=== PATIENT | female | born 1990 | race Two or more races ===

== ENCOUNTER 2025-04-20 11:03 | Emergency (ER) | payer MEDICAID, SELFPAY ==
[2025-04-20 11:23] VITALS: BP 154/85; PULSE 87; RESP 18; TEMP 36.9; O2SAT 99
--- NOTE | 2025-04-20 11:26 | XR_ITS ---
Examination: Wrist, right 3 views Technique: Wrist AP, oblique, lateral 3 views Date and time of exam: April 12, 2025: 29 hours INDICATIONS: Right wrist pain and swelling beginning 2 weeks ago FINDINGS: No fracture or dislocation No foreign body IMPRESSION: No fracture or dislocation
--- NOTE | 2025-04-20 11:27 | EDNOTE_ITS ---
Upper Extremity Injury RME/HPI General Chief Complaint: Hand/Wrist Problems Stated Complaint: RIGHT WRIST PAIN Time Seen by Provider: 04/20/25 11:22 Source: patient Arrival date/time: 04/20/25 11:03 34-year-old female with no known medical history presents to the emergency room with a chief complaint of tenderness and swelling to her right wrist x 1 week Mode of arrival: ambulatory Limitations: no limitations Related Data Previous Rx's ?Medication ?Instructions ?Recorded ibuprofen 600 mg tablet 600 mg PO TID PRN fever or p ain 04/27/18 #20 tabs ibuprofen 800 mg tablet 800 mg PO TID PRN pain #30 t abs 12/22/20 hydrocodone 5 mg-acetaminophen 325 1 tab PO BID PRN pa in #6 tabs 07/01/21 mg tablet ibuprofen 800 mg tablet 800 mg PO TID PRN pain #30 t abs 07/01/21 ibuprofen 800 mg tablet 800 mg PO Q8H #30 tabs 04/20 Allergies Allergy/AdvReac Type Severity Reaction Status Date / Time No Known Allergies Allergy Verified 04/20/25 11:05 Review of Systems Review of Systems Systems Reviewed: All systems reviewed, normal except as documented Constitutional Constitutional: Reports system reviewed and no additional complaints, except as documented, Denies fatigue, Denies fever(s), Denies headache(s) and Denies weakness Eyes Eyes: Reports system reviewed and no additional complaints, except as documented, Denies blurry vision and Denies change in vision ENT Ears, Nose, Mouth, and Throat: Reports system reviewed and no additional complaints, except as documented, Denies otalgia, Denies headache(s), Denies nasal congestion, Denies throat swelling and Denies vertigo Cardiovascular Cardiovascular: Reports system reviewed and no additional complaints, except as documented, Denies chest pain, Denies dyspnea and Denies dyspnea on exertion Respiratory Respiratory: Reports system reviewed and no additional complaints, except as documented, Denies chest congestion, Denies cough, Denies dyspnea, Denies dyspnea on exertion and Denies wheezing Gastrointestinal Gastrointestinal: Reports system reviewed and no additional complaints, except as documented, Denies abdominal pain, Denies cramping, Denies nausea and Denies vomiting Genitourinary Genitourinary: Reports system reviewed and no additional complaints, except as documented Musculoskeletal Musculoskeletal: Reports system reviewed and no additional complaints, except as documented, Reports arthralgias, Denies back pain and Reports joint swelling Integumentary/Breasts Skin/Breast: Reports system reviewed and no additional complaints, except as documented and Denies wounds Neurologic Neurologic: Reports system reviewed and no additional complaints, except as documented, Denies confusion, Denies headache(s), Denies lack of coordination, Denies vertigo and Denies weakness Psychiatric Psychiatric: Reports system reviewed and no additional complaints, except as documented, Denies anxiety, Denies confusion, Denies depression, Denies paranoia, Denies suicidal ideation and Denies tactile hallucinations Endocrine Endocrine: Reports system reviewed and no additional complaints, except as documented and Denies fatigue Hematologic/Lymphatic Hematologic/Lymphatic: Reports system reviewed and no additional complaints, except as documented and Denies lymphadenopathy Allergic/Immunologic Allergic/Immunologic: Reports system reviewed and no additional complaints, except as documented, Denies throat swelling, Denies urticaria and Denies wheezing Past Medical History Social History SMOKING STATUS: Never smoker ED Exam General Limitations: Present no limitations General appearance: Present alert and in no apparent distress Head Head exam: Present atraumatic Eye Eye exam: Present normal appearance, PERRL and EOMI ENT ENT exam: Present normal exam, normal oropharynx and mucous membranes moist Neck Neck exam: Present normal inspection, full ROM and trachea midline Chest Chest inspection: Present normal inspection and symmetric chest wall rise Respiratory Respiratory exam: Present normal lung sounds bilaterally Cardiovascular Cardiovascular exam: Present regular rate, normal rhythm and normal heart sounds Abdominal Exam Abdominal exam: Present soft and normal bowel sounds Extremities Exam Extremities exam: Present normal inspection and full ROM Expanded Upper Extremity Exam Shoulder exam: Present normal inspection Arm exam: Present normal inspection Elbow exam: Present normal inspection Forearm/Wrist exam: Present full ROM, tenderness and swelling Back Exam Back exam: Present normal inspection and full ROM Neurological Exam Neurological exam: Present alert, oriented X3 and CN II-XII intact Psychiatric Psychiatric exam: Present normal affect and normal mood Skin Skin exam: Present warm, dry, intact and normal color Course Quality Measures none Orders Category Date Time Status sling [Splint / Immobilizer] STAT Care 04/20/25 11:26 Active XR wrist comp RT min 3V Stat Exams 04/20/25 11:26 Completed Ketorolac Inj [Toradol Inj] Med 04/20/25 11:26 Discontinued 30 mg IM X1 ONE Vital Signs Vital signs: Vital Signs Temperature 98.4 F 04/20/25 11:23 Pulse Rate 87 04/20/25 11:23 Respiratory Rate 18 04/20/25 11:23 Blood Pressure 154/85 H 04/20/25 11:23 Pulse Oximetry (%) 99 04/20/25 11:23 Oxygen Delivery Method Room Air 04/20/25 11:23 Extremity Injury MDM Narrative MDM Narrative:: 34-year-old female with no known medical history presents to the emergency room with a chief complaint of tenderness and swelling to her right wrist x 1 week Patient is hemodynamically stable and in no apparent distress Physical examination shows tenderness and swelling to the patient's right wrist. 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 X-rays of the wrist were negative for any acute fracture or dislocation. Patient was educated to follow-up with primary care provider and if her signs and symptoms continue to get checked for carpal tunnel Patient was discharged and educated to follow-up with primary care provider in the next 24 to 48 hours and return to the emergency room for any evidence of worsening signs or symptoms Patient data External records reviewed:: [facility] previous records Clinical information provided by:: patient Social determinants that could affect healthcare access:: none Patient has the following chronic illnesses:: No chronic illness How is presenting disease/condition affected by chronic disease/condition?: no chronic disease Evaluation data The following diagnostics were reviewed and interpreted by me:: lab results and radiology exam(s) Lab and/or radiology exams considered but not ordered:: Labs and radiology exams considered and ordered Interpretation Summary: Wrist [id number]: No fracture or dislocation No foreign body IMPRESSION: No fracture or dislocation Medications / Prescriptions Medications or Prescriptions considered but not ordered:: Medication given Medication administrations:: Medication Administration History Discontinued Medications Ketorolac Tromethamine (Ketorolac Inj 60 Mg/2 Ml Vial) 30 mg IM X1 ONE Stop: 04/20/25 11:27 Last Admin: 04/20/25 11:43 Dose: 30 mg Documented By: Medication given Consultations Consultation(s) initiated? (list below): No Diagnosis Upper Extremity Injury Differential Diagnosis: sprain and strain of wrist, fracture of wrist and other (Tendinitis of wrist) Most likely diagnosis given after review of the tests above:: Tendinitis of wrist Admission Indicated Admission indicated?: not indicated Admission Request Was there a request for admission?: No Disposition Plan Disposition Plan: Discharge Discharge Attestation Discharge Attestation: The patient and all family members were given an opportunity to ask questions and understood the discharge instructions. Discharge instructions specifically effects, indications for sooner follow up or return to the emergency department, and the expected course of current diagnosis. Patient condition: Stable Discharge Plan Plan Patient Disposition: HOME (Self Care) Discharge Disposition comment: Stable Prescriptions/Referrals Prescriptions/Med Rec: New ibuprofen 800 mg tablet 800 mg PO Q8H Qty: 30 0RF No Action ibuprofen 600 mg tablet 600 mg PO TID PRN (Reason: fever or pain) Qty: 20 0RF Rx Instructions: take with food ibuprofen 800 mg tablet 800 mg PO TID PRN (Reason: pain) Qty: 30 0RF ibuprofen 800 mg tablet 800 mg PO TID PRN (Reason: pain) Qty: 30 0RF hydrocodone-acetaminophen 5-325 mg tablet 1 tab PO BID MDD 10 PRN (Reason: pain) Qty: 6 0RF Referrals: No Primary/Family,Physician [Primary Care Provider] - In 1 week Problem List Clinical Impression: Tendinitis of wrist Patient/Caregiver Discharge Instructions Additional Instructions: Please follow-up with your primary care provider in the next 24 to 48 hours X-rays of your wrist were negative for any acute fracture or dislocation Please keep your splint in place If your signs and symptoms continue a referral for an MRI may be indicated to assess for any carpal tunnel For any evidence of worsening signs or symptoms return to the emergency room immediately Print Language: Malawian Stand Alone Forms: Tawanna Award Info., Work/School Release, Patient Portal Info Letter SANDRA/SID Supervising Physician NATA Supervising Physician: Dr. Burr
[2025-04-20] MEDS: KETOROLAC INJ 60 MG/2 ML VIAL 30 MG IM (11:43)
== END 2025-04-20 13:35 | disposition home or self-care (01) ==
PROVIDERS: Emergency Provider Emergency Medicine
DX: M77.8 Other enthesopathies, not elsewhere classified (principal)
CPT/HCPCS: 73110; 96372; 99283; J1885

== ENCOUNTER 2025-04-28 00:29 | Emergency (ER) | payer MEDICAID, SELFPAY ==
[2025-04-28 00:32] VITALS: BP 142/102; PULSE 87; RESP 18; TEMP 36.7; O2SAT 99
[2025-04-28 00:33] VITALS: PULSE 114; RESP 16; O2SAT 100
[2025-04-28 00:37] VITALS: BP 145/95; PULSE 82; RESP 17; TEMP 37; O2SAT 98
--- NOTE | 2025-04-28 00:48 | EKG_ITS ---
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
[2025-04-28 01:05] LABS: Basophils # (Auto) 0.1 Thou/mm3 (0.0-0.2); Basophils % (Auto) 1 % (0-2.5); Eosinophils # (Auto) 0.2 Thou/mm3 (0.0-0.5); Eosinophils % (Auto) 2 % (0-10); Hematocrit 40.3 % (36.0-46.0); Hemoglobin 13.6 g/dL (12.0-16.0); Immature Granulocytes Auto 0.02 Thou/mm3 (0.00-0.00); Lymphocytes # (Auto) 4.8 Thou/mm3 (1.0-4.8); Lymphocytes % (Auto) 46 % (10-50); Mean Corpuscular HGB Conc 33.7 g/dl (31.0-37.0); Mean Corpuscular Hemoglobin 31.9 pg (25.0-35.0); Mean Corpuscular Volume 95 fL (80-100); Monocytes # (Auto) 1.0 Thou/mm3 (0.0-0.8); Monocytes % (Auto) 9 % (0-12); Neutrophils # (Auto) 4.4 Thou/mm3 (1.8-7.7); Neutrophils % (Auto) 42 % (37-80); Nucleated Red Blood Cell # 0.00 Thou/mm3 (0.00-0.00); Nucleated Red Blood Cell % 0 /100 WBC (0); Platelet Count 283 Thou/mm3 (140-440); RDW Standard Deviation 40.0 fL (36.4-46.3); Red Blood Count 4.26 Miln/mm3 (4.00-5.20); White Blood Count 10.5 Thou/mm3 (3.6-11.0)
[2025-04-28 01:23] LABS: Alanine Aminotransferase 11 U/L (10-49); Albumin, Serum 4.5 gm/dL (3.5-5.0); Albumin/Globulin Ratio 1.5 (1.2-2.2); Alkaline Phosphatase 58 U/L (46-116); Anion Gap 11 (7-16); Aspartate Amino Transferase 24 U/L (0-34); BUN/Creatinine Ratio 16 Ratio (12-20); Bilirubin,Total 0.2 mg/dL (0.3-1.2); Blood Urea Nitrogen 13 mg/dL (9-23); Calcium 9.6 mg/dL (8.3-10.6); Calcium (Corrected) 9.6 mg/dL (8.5-10.1); Carbon Dioxide 25.7 mMol/L (20.0-31.0); Chloride 105 mMol/L (98-107); Creatinine (Component) 0.8 mg/dL (0.6-1.3); Estimated Creatinine Clearance 84.4 mL/min (>60); Globulin 3.0 gm/dL (2.3-3.5); Glucose 96 mg/dL (74-106); Osmolality,Calculated 283 (275-295); Potassium 3.6 mMol/L (3.4-5.1); Sodium 142 mMol/L (136-145); Total Protein 7.5 gm/dL (5.7-8.2); eGFR > 60 See Note
--- NOTE | 2025-04-28 01:47 | PD.EDANX ---
ED Anxiety RME/HPI General Chief Complaint: Anxiety Stated Complaint: NUMBNESS Time Seen by Provider: 04/28/25 00:36 Arrival date/time: 04/28/25 00:29 Related Data Previous Rx's ?Medication ?Instructions ?Recorded ibuprofen 600 mg tablet 600 mg PO TID PRN fever or pain 04/27/18 #20 tabs ibuprofen 800 mg tablet 800 mg PO TID PRN pain #30 tabs 12/22/20 hydrocodone 5 mg-acetaminophen 325 1 tab PO BID PRN pain #6 tabs 07/01/21 mg tablet ibuprofen 800 mg tablet 800 mg PO TID PRN pain #30 tabs 07/01/21 ibuprofen 800 mg tablet 800 mg PO Q8H #30 tabs 04/20/25 atenolol 25 mg tablet 25 mg PO QDAY 1 month #30 tabs 04/28/25 Allergies Allergy/AdvReac Type Severity Reaction Status Date / Time No Known Allergies Allergy Verified 04/20/25 11:05 ED Exam Narrative Physical exam: Physical Exam: GENERAL: Awake, answering questions appropriately, appears stated age HEENT: NC/AT. Moist mucosa. PERRLA/EOMI. CARDIO: Heart RRR, no obvious murmurs, no JVD. PULM: No coughing or visible SOB. Lungs CTA B/L. GI: Abdomen soft, NT/ND, +BS. SKIN/MSK/EXT: No wounds/discoloration/rashes/edema/amputations noted. +Pedal pulses present B/L. NEURO: Oriented x3, cranial nerves II to XII grossly intact, muscle strength 5 out of 5 on both upper and lower extremities, sensations intact, moves extremities x4, no focal neurologic deficits noted. Course Quality Measures none Orders Category Date Time Status EKG (ED ONLY) *Do not use* NOW Care 04/28/25 00:48 Completed EKG (ED Only) Stat Exams 04/28/25 00:48 Draft CBC Stat Lab 04/28/25 00:55 Completed CMP [Comprehensive Metabolic Panel] Stat Lab 04/28/25 00:55 Completed Vital Signs Vital signs: Vital Signs Temperature 98.1 F 04/28/25 00:32 Pulse Rate 87 04/28/25 00:32 Respiratory Rate 18 04/28/25 00:32 Blood Pressure 142/102 H 04/28/25 00:32 Pulse Oximetry (%) 99 04/28/25 00:32 Oxygen Delivery Method Room Air 04/28/25 00:32 Anxiety MDM Narrative MDM Narrative: HPI: 35-year-old female with past medical history of hypertension, not currently on any home antihypertensives, remote history of Paul's palsy presenting to the ED on 04/28 with an episode of bilateral upper extremity pain and numbness along with shortness of breath, palpitations and the feeling that she was having a stroke . Patient states that her symptoms felt somewhat similar to her episode of Paul's palsy years ago; however, this time both of her arms felt numb. Patient denies having any chest pain during this episode but states that she felt very ill and was worried. She was apparently watching a movie with her children when this episode happened and she denies having any exacerbating events or stressful triggers. Per yaneth? at bedside, patient has had a similar episode about 2 weeks ago at which point she apparently felt very dizzy with upper extremity numbness that but never lost consciousness. She denies smoking cigarettes but does state that she has some family history of strokes on maternal side of the family. Patient's mother currently had a stroke later in life when she was much older. On examination please refer to the physical exam note above; patient presented mildly hypertensive 142/102, heart rate of 87, respiratory of 18, afebrile satting 99 on room air. Pertinent lab findings included CBC which was largely unremarkable with a WBC of 10.5, hemoglobin 13.6, CMP was also largely unremarkable without any concerning findings. EKG showed normal sinus rhythm Differentials at this time include anxiety disorder, panic attack, postural orthostatic tachycardia, orthostatic hypotension but less likely to be acute coronary syndrome, arrhythmia or seizure/stroke as the patient has very low risk factors and on assessment does not have any signs of seizure/stroke. #Acute anxiety #Panic disorder #Hypertension As noted, patient has very low risk factors for any other condition at this time Patient has episodes of panic attacks in the past and apparently is not being treated currently with hypertension Plan: Take atenolol 25 mg by mouth for blood pressure control Please follow-up with your PCP for hypertension management and possible need for anxiety treatment if recurrent episodes occur If you develop chest pain, shortness of breath, dizziness or loss of consciousness - please come back to the ED immediately Patient seen and examined with attending Dr. Yani Enrique, DO PGY-2 Internal Medicine - [facility] Patient data External records reviewed:: None Clinical information provided by:: patient Social determinants that could affect healthcare access:: none Patient has the following chronic illnesses:: Hypertension How is presenting disease/condition affected by chronic disease/condition?: uneffected by Evaluation data The following diagnostics were reviewed and interpreted by me:: lab results and EKG tracing(s) Lab and/or radiology exams considered but not ordered:: See above Interpretation Summary: See above Medications / Prescriptions Medications or Prescriptions considered but not ordered:: See above Medication administrations:: See above Consultations Consultation(s) initiated? (list below): No Diagnosis Most likely diagnosis given after review of the tests above:: Anxiety disorder, panic attack Admission Indicated Admission indicated?: not indicated Admission Request Was there a request for admission?: No Disposition Plan Disposition Plan: Discharge Discharge Attestation Discharge Attestation: The patient and all family members were given an opportunity to ask questions and understood the discharge instructions. Discharge instructions specifically effects, indications for sooner follow up or return to the emergency department, and the expected course of current diagnosis. Patient condition: Stable Discharge Plan Plan Patient Disposition: HOME (Self Care) Discharge Disposition comment: Please follow-up with your PCP for hypertension management and possible need for anxiety treatment if recurrent episodes occur If you develop chest pain, shortness of breath, dizziness or loss of consciousness - please come back to the ED immediately Patient condition on transfer: Stable Prescriptions/Referrals Prescriptions/Med Rec: New atenolol 25 mg tablet 25 mg PO QDAY 30 Days Qty: 30 0RF No Action ibuprofen 600 mg tablet 600 mg PO TID PRN (Reason: fever or pain) Qty: 20 0RF Rx Instructions: take with food ibuprofen 800 mg tablet 800 mg PO TID PRN (Reason: pain) Qty: 30 0RF ibuprofen 800 mg tablet 800 mg PO TID PRN (Reason: pain) Qty: 30 0RF hydrocodone-acetaminophen 5-325 mg tablet 1 tab PO BID MDD 10 PRN (Reason: pain) Qty: 6 0RF ibuprofen 800 mg tablet 800 mg PO Q8H Qty: 30 0RF Problem List Clinical Impression: Acute anxiety Patient/Caregiver Discharge Instructions Education Materials: Anxiety Disorders Tx Therapy Print Language: Slovenian Stand Alone Forms: Tawanna Award Info., Patient Portal Info Letter
[2025-04-28 02:42] VITALS: BP 131/98; PULSE 63; RESP 16; TEMP 37; O2SAT 98
== END 2025-04-28 02:44 | disposition home or self-care (01) ==
LOC: SERX 02:54
PROVIDERS: Emergency Provider Emergency Medicine
DX: F41.9 Anxiety disorder, unspecified (principal); I10 Essential (primary) hypertension
CPT/HCPCS: 36415; 80053; 85025; 93005; 99282

== ENCOUNTER 2025-05-03 13:02 | Emergency (ER) | payer MEDICAID, SELFPAY ==
[2025-05-03 13:04] VITALS: BMI 30.2
[2025-05-03 13:26] VITALS: BP 156/103; PULSE 67; RESP 18; TEMP 36.8; O2SAT 95
--- NOTE | 2025-05-03 13:28 | EKG_ITS ---
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
--- NOTE | 2025-05-03 13:28 | XR_ITS ---
EXAMINATION: PA lateral chest 2 views TECHNIQUE: PA lateral chest 2 views Exam date and time: May 03, 2025, 1347 hours INDICATIONS: Chest pain dizziness numbness in the extremities beginning 6 days ago. FINDINGS: Normal heart size Lungs are clear. Osseous rectors are intact IMPRESSION: No active disease
--- NOTE | 2025-05-03 13:29 | EDNOTE_ITS ---
ED Anxiety RME/HPI General Chief Complaint: Anxiety Stated Complaint: PANIC ATTACK, TINGLING AND NUMBNESS TO EXT, PAIN Time Seen by Provider: 05/03/25 13:21 Arrival date/time: 05/03/25 13:02 35-year-old female patient with significant history of hypertension was brought in for evaluation regarding multiple complaints. Patient was sitting [place] when she developed sudden onset of anterior chest tightness, associated with neck pain, bilateral upper extremity tingling sensation, and not feeling well. Patient denies any headache denies any dizziness. Denies any slurring of speech. Patient is ambulatory. Patient was seen here last Wednesday, for chest pain, and was diagnosed with anxiety. Was sent home with no medication. No follow-up with PCP yet. Incident happened around 12 PM today Related Data Previous Rx's ?Medication ?Instructions ?Recorded ibuprofen 600 mg tablet 600 mg PO TID PRN fever or p ain 04/27/18 #20 tabs ibuprofen 800 mg tablet 800 mg PO TID PRN pain #30 t abs 12/22/20 hydrocodone 5 mg-acetaminophen 325 1 tab PO BID PRN pa in #6 tabs 07/01/21 mg tablet ibuprofen 800 mg tablet 800 mg PO TID PRN pain #30 t abs 07/01/21 ibuprofen 800 mg tablet 800 mg PO Q8H #30 tabs 04/20 atenolol 25 mg tablet 25 mg PO QDAY 1 month #30 ta bs 04/28/25 alprazolam 0.5 mg tablet (Xanax) 0.5 mg PO BID PRN anx iety #20 tabs 05/03/25 Allergies Allergy/AdvReac Type Severity Reaction Status Date / Time No Known Allergies Allergy Verified 05/03/25 13:03 Review of Systems Review of Systems Narrative Review of Systems: Review of system reviewed and within normal limits except mentioned in HPI ED Exam Narrative Physical exam: VITAL SIGNS: Reviewed. GENERAL APPEARANCE: Alert and interactive, follows commands, no acute distress, HEAD AND FACE: Non-traumatic. ENT: PERRL, pink conjunctivitis, eyelid no trauma, Mucous membrane moist. NECK: Supple, nontender, no nuchal rigidity. CHEST: No tenderness, no crepitus, no paradoxical movement, no retractions. LUNGS: Clear, well ventilated, symmetric, no rales, no wheezing, no ronchi, no stridor, good breath sounds bilaterally. HEART: Regular rate, regular rhythm, no murmur, no gallops. ABDOMEN: Soft, positive bowel sounds, nondistended, no guarding, nontender, no rebound, no masses, RECTAL: Deferred. GENITAL: Deferred. NEUROLOGICAL: Gross motor function intact sensory function intact, Appropriate for age. MUSCULOSKELETAL: low back nontender, full range of motion. EXTREMITIES: Nontender, full range of motion. SKIN: Color pink, dry, no rash, no lacerations, no abrasions, no contusions. LYMPHATICS: Deferred. Course Quality Measures none Orders Category Date Time Status EKG (ED ONLY) *Do not use* NOW Care 05/03/25 13:28 Ordered EKG (ED Only) Stat Exams 05/03/25 13:28 Ordered XR chest 1V Stat Exams 05/03/25 13:28 Ordered CBC Stat Lab 05/03/25 13:28 Ordered Comprehensive Metabolic Panel Stat Lab 05/03/25 13:28 Ordered Partial Thromboplastin Time Stat Lab 05/03/25 13:28 Ordered Troponin I Stat Lab 05/03/25 13:28 Ordered Urinalysis, C/S if Indicated Stat Lab 05/03/25 13:28 Ordered Diazepam [Valium] Med 05/03/25 13:28 Once 5 mg PO X1 ONE Vital Signs Vital signs: Vital Signs Temperature 98.3 F 05/03/25 13:26 Pulse Rate 67 05/03/25 13:26 Respiratory Rate 18 05/03/25 13:26 Blood Pressure 156/103 H 05/03/25 13:26 Pulse Oximetry (%) 95 05/03/25 13:26 Oxygen Delivery Method Room Air 05/03/25 13:26 Anxiety MDM Narrative MDM Narrative: 05/03/25 13:02 35-year-old female patient with significant history of hypertension was brought in for evaluation regarding multiple complaints. Patient was sitting [place] when she developed sudden onset of anterior chest tightness, associated with neck pain, bilateral upper extremity tingling sensation, and not feeling well. Patient denies any headache denies any dizziness. Denies any slurring of speech. Patient is ambulatory. Patient was seen here last Wednesday, for chest pain, and was diagnosed with anxiety. Was sent home with no medication. No follow-up with PCP yet. Incident happened around 12 PM today. Patient's cardiac workup all came back unremarkable. Including chest x-ray which came back normal. EKG showed sinus bradycardia, ventricular to 54 bpm, no ST segment elevation or depression noted. Repeat troponin is not needed at this time. Patient is not having any symptoms after patient received Xanax. Patient is probably having anxiety like symptoms. Stable for discharge home Patient data External records reviewed:: None Clinical information provided by:: patient Social determinants that could affect healthcare access:: none Patient has the following chronic illnesses:: None How is presenting disease/condition affected by chronic disease/condition?: no chronic disease Evaluation data The following diagnostics were reviewed and interpreted by me:: lab results, radiology exam(s) and EKG tracing(s) Lab and/or radiology exams considered but not ordered:: None Interpretation Summary: None Medications / Prescriptions Medications or Prescriptions considered but not ordered:: None Medication administrations:: None Consultations Consultation(s) initiated? (list below): No Consultation #1 (Physician, Specialty, Details): None Diagnosis Differential diagnosis anxiety: hyperventilation, panic disorder and acute anxiety Most likely diagnosis given after review of the tests above:: anxiety Admission Indicated Admission indicated?: not indicated Admission Request Was there a request for admission?: No Disposition Plan Disposition Plan: Discharge Discharge Attestation Discharge Attestation: The patient and all family members were given an opportunity to ask questions and understood the discharge instructions. Discharge instructions specifically effects, indications for sooner follow up or return to the emergency department, and the expected course of current diagnosis. Patient condition: Stable Discharge Plan Plan Patient Disposition: HOME (Self Care) Discharge Disposition comment: Stable Prescriptions/Referrals Prescriptions/Med Rec: New alprazolam [Xanax] 0.5 mg tablet 0.5 mg PO BID PRN (Reason: anxiety) Qty: 20 0RF No Action ibuprofen 600 mg tablet 600 mg PO TID PRN (Reason: fever or pain) Qty: 20 0RF Rx Instructions: take with food ibuprofen 800 mg tablet 800 mg PO TID PRN (Reason: pain) Qty: 30 0RF ibuprofen 800 mg tablet 800 mg PO TID PRN (Reason: pain) Qty: 30 0RF hydrocodone-acetaminophen 5-325 mg tablet 1 tab PO BID MDD 10 PRN (Reason: pain) Qty: 6 0RF ibuprofen 800 mg tablet 800 mg PO Q8H Qty: 30 0RF atenolol 25 mg tablet 25 mg PO QDAY 30 Days Qty: 30 0RF Referrals: Rowena Camargo MD [Primary Care Provider, Family Practice] - In 1 week Problem List Clinical Impression: Acute anxiety Patient/Caregiver Discharge Instructions Discharge Activity: activity as tolerated Education Materials: ED Anxiety Reaction Additional Instructions: Thank you for the opportunity for serving you today. You are stable for discharged . You are advised to: Follow-up with your PCP in 1 to 2 days Return to ED for worsening of symptoms Increase oral fluids Take medication as prescribed Print Language: Canadian Stand Alone Forms: Tawanna Award Info., Patient Portal Info Letter PA/WHOLESALE LOAN PROCESSOR Supervising Physician PA/WHOLESALE LOAN PROCESSOR Supervising Physician: MD nishi
[2025-05-03 14:15] LABS: Basophils # (Auto) 0.0 Thou/mm3 (0.0-0.2); Basophils % (Auto) 1 % (0-2.5); Eosinophils # (Auto) 0.1 Thou/mm3 (0.0-0.5); Eosinophils % (Auto) 2 % (0-10); Hematocrit 41.0 % (36.0-46.0); Hemoglobin 14.3 g/dL (12.0-16.0); Immature Granulocytes Auto 0.02 Thou/mm3 (0.00-0.00); Lymphocytes # (Auto) 2.8 Thou/mm3 (1.0-4.8); Lymphocytes % (Auto) 33 % (10-50); Mean Corpuscular HGB Conc 34.9 g/dl (31.0-37.0); Mean Corpuscular Hemoglobin 32.3 pg (25.0-35.0); Mean Corpuscular Volume 93 fL (80-100); Monocytes # (Auto) 0.5 Thou/mm3 (0.0-0.8); Monocytes % (Auto) 5 % (0-12); Neutrophils # (Auto) 5.0 Thou/mm3 (1.8-7.7); Neutrophils % (Auto) 59 % (37-80); Nucleated Red Blood Cell # 0.00 Thou/mm3 (0.00-0.00); Nucleated Red Blood Cell % 0 /100 WBC (0); Platelet Count 279 Thou/mm3 (140-440); RDW Standard Deviation 39.6 fL (36.4-46.3); Red Blood Count 4.43 Miln/mm3 (4.00-5.20); White Blood Count 8.5 Thou/mm3 (3.6-11.0)
[2025-05-03 14:27] LABS: Partial Thromboplastin Time 28.6 Seconds (22.0-36.0)
[2025-05-03 14:34] LABS: Alanine Aminotransferase 14 U/L (10-49); Albumin, Serum 4.8 gm/dL (3.5-5.0); Albumin/Globulin Ratio 1.7 (1.2-2.2); Alkaline Phosphatase 55 U/L (46-116); Anion Gap 8 (7-16); Aspartate Amino Transferase 20 U/L (0-34); BUN/Creatinine Ratio 22 Ratio (12-20); Bilirubin,Total 0.4 mg/dL (0.3-1.2); Blood Urea Nitrogen 13 mg/dL (9-23); Calcium 9.8 mg/dL (8.3-10.6); Calcium (Corrected) 9.8 mg/dL (8.5-10.1); Carbon Dioxide 28.1 mMol/L (20.0-31.0); Chloride 105 mMol/L (98-107); Creatinine (Component) 0.6 mg/dL (0.6-1.3); Estimated Creatinine Clearance 112.3 mL/min (>60); Globulin 2.9 gm/dL (2.3-3.5); Glucose 91 mg/dL (74-106); Osmolality,Calculated 281 (275-295); Potassium 3.6 mMol/L (3.4-5.1); Sodium 141 mMol/L (136-145); Total Protein 7.7 gm/dL (5.7-8.2); Troponin I < 0.002 ng/mL (0.0-0.045); eGFR > 60 See Note
[2025-05-03 14:37] LABS: Collection Type, Urine Clean Catch; WBC,Urine 0 /hpf (0-5)
[2025-05-03 14:45] LABS: Bilirubin,Urine Negative (Negative); Blood,Urine Negative (Negative); Clarity,Urine Clear (Clear/Hazy); Color,Urine Colorless (Lt Yel-Yel); Culture Indicated,Urine Not Indicated; Glucose, Urine Negative (Negative); Ketones,Urine Negative (Negative); Leukocyte Esterase,Urine Negative (Negative); Nitrite,Urine Negative (Negative); PH,Urine 6.5 (5.0-7.0); Protein,Urine Negative (Neg - Trace); RBC,Urine < 1 /hpf (0-3); Specific Gravity,Urine 1.009 (1.001-1.035); Squamous Epithelial Cell,Urine < 1 /hpf (0-5); Urobilinogen,Urine Negative mg/dL (0.0-1.0)
[2025-05-03] MEDS: DIAZEPAM 5 MG TABLET PO (15:07)
[2025-05-03 15:58] VITALS: BP 133/85; PULSE 60; RESP 18; TEMP 37.1; O2SAT 100
== END 2025-05-03 16:17 | disposition home or self-care (01) ==
PROVIDERS: Nurse Practitioner Family; Emergency Provider Family Medicine; PCP Family Medicine
DX: F41.9 Anxiety disorder, unspecified (principal); R07.89 Other chest pain; R42 Dizziness and giddiness; R20.2 Paresthesia of skin; R20.0 Anesthesia of skin; R00.1 Bradycardia, unspecified; I10 Essential (primary) hypertension
CPT/HCPCS: 36415; 71045; 80053; 81001; 84484; 85025; 85730; 93005; 99283; A9270

== ENCOUNTER 2025-05-15 12:45 | Emergency (ER) | payer MEDICAID, SELFPAY ==
[2025-05-15 13:06] VITALS: BP 122/74; PULSE 64; RESP 18; TEMP 37.1; O2SAT 98; BMI 30.2
--- NOTE | 2025-05-15 13:17 | EKG_ITS ---
[facility] Test Date: 2025-05-15 Pat Name: EMIL SANTIAGO Department: Room: - Gender: Female Coffee Attendant: : 1990 Requested By: Everardo Rodríguez Order Number: [id number] Reading MD: Everardo Rodríguez Measurements Intervals [place] Rate: 57 P: 23 NE: 143 QRS: 8 QRSD: 91 T: 13 QT: 411 QTc: 403 Interpretive Statements SINUS BRADYCARDIA Compared to ECG 05/03/2025 13:35:50 No significant changes /store/S0/[id number]
--- NOTE | 2025-05-15 13:17 | XR_ITS ---
Examination: CT brain head without contrast. 2-D sagittal coronal reconstructions Date and time of exam: May 15, 2025, 1339 hours INDICATIONS: Dizziness headaches beginning 2 days ago CTDI: vol (mGy): 47.7 DLP: (mGycm): 939 Technique: Multiple CT axial sections of the brain have been obtained, 5 mm slice thickness. Contrast has not been administered. 2-D sagittal, coronal reconstructions have been obtained Low dose protocols were performed. One or more of the following dose reduction techniques were used; automated exposure control, adjustment of the mA and/or KV according to patient size, use of iterative reconstruction technique. Findings: No significant ventricular enlargement. Intra-axial or extra-axial hemorrhage density is not seen. No mass effect or midline shift Basal cisterns are not remarkable. Fourth ventricle is midline. Cranial vault intact. Impression: Negative for acute hemorrhage, mass effect or midline shift Advise conical correlation and follow-up accordingly
[2025-05-15] MEDS: MECLIZINE HCL 25 MG TABLET 50 MG PO (13:28)
[2025-05-15] MEDS: ACETAMINOPHEN 325 MG TABLET 650 MG PO (13:28)
[2025-05-15] MEDS: ONDANSETRON ODT 4 MG TABRAP 8 MG PO (13:28)
[2025-05-15 14:05] LABS: Basophils # (Auto) 0.1 Thou/mm3 (0.0-0.2); Basophils % (Auto) 1 % (0-2.5); Eosinophils # (Auto) 0.2 Thou/mm3 (0.0-0.5); Eosinophils % (Auto) 3 % (0-10); Hematocrit 38.0 % (36.0-46.0); Hemoglobin 13.2 g/dL (12.0-16.0); Immature Granulocytes Auto 0.03 Thou/mm3 (0.00-0.00); Lymphocytes # (Auto) 2.9 Thou/mm3 (1.0-4.8); Lymphocytes % (Auto) 38 % (10-50); Mean Corpuscular HGB Conc 34.7 g/dl (31.0-37.0); Mean Corpuscular Hemoglobin 32.1 pg (25.0-35.0); Mean Corpuscular Volume 93 fL (80-100); Monocytes # (Auto) 0.5 Thou/mm3 (0.0-0.8); Monocytes % (Auto) 6 % (0-12); Neutrophils # (Auto) 4.0 Thou/mm3 (1.8-7.7); Neutrophils % (Auto) 53 % (37-80); Nucleated Red Blood Cell # 0.00 Thou/mm3 (0.00-0.00); Nucleated Red Blood Cell % 0 /100 WBC (0); Platelet Count 237 Thou/mm3 (140-440); RDW Standard Deviation 39.7 fL (36.4-46.3); Red Blood Count 4.11 Miln/mm3 (4.00-5.20); White Blood Count 7.6 Thou/mm3 (3.6-11.0)
[2025-05-15 14:31] LABS: Alanine Aminotransferase 15 U/L (10-49); Albumin, Serum 4.4 gm/dL (3.5-5.0); Albumin/Globulin Ratio 1.6 (1.2-2.2); Alkaline Phosphatase 55 U/L (46-116); Anion Gap 10 (7-16); Aspartate Amino Transferase 18 U/L (0-34); BUN/Creatinine Ratio 10 Ratio (12-20); Bilirubin,Total 0.3 mg/dL (0.3-1.2); Blood Urea Nitrogen 7 mg/dL (9-23); Calcium 9.0 mg/dL (8.3-10.6); Calcium (Corrected) 9.0 mg/dL (8.5-10.1); Carbon Dioxide 26.4 mMol/L (20.0-31.0); Chloride 107 mMol/L (98-107); Creatinine (Component) 0.7 mg/dL (0.6-1.3); Estimated Creatinine Clearance 96.3 mL/min (>60); Globulin 2.8 gm/dL (2.3-3.5); Glucose 94 mg/dL (74-106); Osmolality,Calculated 282 (275-295); Potassium 4.2 mMol/L (3.4-5.1); Sodium 143 mMol/L (136-145); Thyroid Stimulating Hormone 0.75 uIU/mL (0.55-4.78); Total Protein 7.2 gm/dL (5.7-8.2); Troponin I < 0.002 ng/mL (0.0-0.045); eGFR > 60 See Note
[2025-05-15 14:56] LABS: Collection Type, Urine Voided
[2025-05-15 15:04] LABS: Bilirubin,Urine Negative (Negative); Blood,Urine Negative (Negative); Clarity,Urine Clear (Clear/Hazy); Color,Urine Lt-Yellow (Lt Yel-Yel); Glucose, Urine Negative (Negative); Ketones,Urine Negative (Negative); Leukocyte Esterase,Urine Negative (Negative); Nitrite,Urine Negative (Negative); PH,Urine 6.5 (5.0-7.0); Protein,Urine Negative (Neg - Trace); RBC,Urine 1 /hpf (0-3); Specific Gravity,Urine 1.014 (1.001-1.035); Squamous Epithelial Cell,Urine < 1 /hpf (0-5); Urobilinogen,Urine Negative mg/dL (0.0-1.0); WBC,Urine < 1 /hpf (0-5)
[2025-05-15 15:08] LABS: HCG Qualitative,Urine Negative
--- NOTE | 2025-05-15 16:07 | EDNOTE_ITS ---
ED Dizzyness RME/HPI General Chief Complaint: Dizziness Stated Complaint: dizziness and headache x 2 wks Time Seen by Provider: 05/15/25 12:52 Arrival date/time: 05/15/25 12:45 This is a case of 35-year-old female with history of hypertension came in in the emergency room due to dizziness on and off for 2 weeks associated with mild frontal headache patient denies any numbness weakness tingling sensation denies any blurring of vision denies any chest pain shortness of breath or palpitation patient was here twice and was diagnosed to have anxiety with the persistence of the symptoms thus patient decided to sought consult here in the emergency room Limitations: no limitations Related Data Previous Rx's ?Medication ?Instructions ?Recorded ibuprofen 600 mg tablet 600 mg PO TID PRN fever or p ain 04/27/18 #20 tabs ibuprofen 800 mg tablet 800 mg PO TID PRN pain #30 t abs 12/22/20 hydrocodone 5 mg-acetaminophen 325 1 tab PO BID PRN pa in #6 tabs 07/01/21 mg tablet ibuprofen 800 mg tablet 800 mg PO TID PRN pain #30 t abs 07/01/21 ibuprofen 800 mg tablet 800 mg PO Q8H #30 tabs 04/20 atenolol 25 mg tablet 25 mg PO QDAY 1 month #30 ta bs 04/28/25 alprazolam 0.5 mg tablet (Xanax) 0.5 mg PO BID PRN anx iety #20 tabs 05/03/25 amoxicillin 875 mg-potassium 1 tab PO BID #20 tabs clavulanate 125 mg tablet meclizine 50 mg tablet 50 mg PO BID PRN dizziness # 20 tabs 05/15/25 ondansetron 4 mg disintegrating 4 mg PO Q8H #20 tabs 1 07/16/24 tablet Allergies Allergy/AdvReac Type Severity Reaction Status Date / Time No Known Allergies Allergy Verified 05/15/25 12:48 Review of Systems Review of Systems Systems Reviewed: All systems reviewed, normal except as documented Past Medical History Past Medical History NEUROLOGIC: Positive Paul's Palsy CARDIAC: Positive Hypertension; Negative Congestive Heart Failure RESPIRATORY: Negative Chronic Obstructive Pulmonary Disease (COPD) GASTROINTESTINAL: Negative Gastrointestinal Disorders GENITOURINARY: Negative Genitourinary Disorders or Renal Disease REPRODUCTIVE: Negative Pelvic Inflammatory Disease MUSCULOSKELETAL: Negative Musculoskeletal Disorders ENDOCRINE: Negative Endocrine Disorders, Diabetes Mellitus Type 1 or Diabetes Mellitus Type 2 HEMATOLOGIC: Negative Blood Disorders Family History FAMILY HISTORY: Negative Family Cardiac Disorders Surgical History SURGICAL: Negative Cardiac Surgery or Endocrine Surgery Social History SMOKING STATUS: Never smoker ED Exam General Limitations: Present no limitations General appearance: Present alert, in no apparent distress and other (Patient is awake alert oriented not in distress nontoxic looking well-hydrated well no urished) Head Head exam: Present atraumatic, normocephalic and normal inspection Eye Eye exam: Present normal appearance, PERRL, EOMI and other (perrl eom intact no pappialedema no hyphema) ENT ENT exam: Present normal exam, normal oropharynx, mucous membranes moist and other (Tympanic membrane both redness bulging but not perforated ear canal red otherwise normal) Neck Neck exam: Present normal inspection, full ROM, trachea midline and other (ngative for menigial sign); Absent tenderness, meningismus, lymphadenopathy or thyromegaly Chest Chest inspection: Present normal inspection and symmetric chest wall rise; Absent tenderness Respiratory Respiratory exam: Present normal lung sounds bilaterally; Absent respiratory distress, wheezes, stridor, accessory muscle use or prolonged expiratory phase Cardiovascular Cardiovascular exam: Present regular rate, normal rhythm and normal heart sounds; Absent bradycardia, tachycardia, irregular rhythm, systolic murmur, diastolic murmur or clicks Abdominal Exam Abdominal exam: Present soft and normal bowel sounds; Absent distention, tenderness, guarding, rebound, rigidity, diminished bowel sounds, hyperactive bowel sounds, hypoactive bowel sounds, organomegaly or trauma Extremities Exam Extremities exam: Present normal inspection and full ROM Back Exam Back exam: Present normal inspection and full ROM; Absent tenderness, CVA tenderness (R), CVA tenderness (L), muscle spasm, paraspinal tenderness, vertebral tenderness, rashes, sciatic notch tenderness (R), sciatic notch tenderness (L), straight leg raise (R) or straight leg raise (L) Neurological Exam Neurological exam: Present alert, oriented X3, CN II-XII intact, normal gait, reflexes normal and other (Awake alert oriented x 4 no focal deficit GCS 15/15 steady gait memory intact no slurring speech no facial droop motor or sensory reflex were all normal in all extremities negative Babinski CN II to XII); Absent motor sensory deficit Psychiatric Psychiatric exam: Present normal affect, normal mood and anxious (Slightly anxious no homicidal no suicidal ideation ideation no hallucination); Absent depressed or agitated Skin Skin exam: Present warm, dry, intact, normal color and other (Excellent skin turgor) Course Quality Measures none Orders Category Date Time Status EKG (ED ONLY) *Do not use* NOW Care 05/15/25 13:[address] head/brain wo con Stat Exams 05/15/25 13:17 Completed EKG (ED Only) Stat Exams 05/15/25 13:17 Draft CBC Stat Lab 05/15/25 13:52 Completed CMP [Comprehensive Metabolic Panel] Stat Lab 05/15/25 13:52 Completed HCG Qualitative,Urine Stat Lab 05/15/25 14:25 Completed TSH [Thyroid Stimulating Hormone] Stat Lab 05/15/25 13:52 Completed Troponin I Stat Lab 05/15/25 13:52 Completed Urinalysis Stat Lab 05/15/25 14:25 Completed Acetaminophen Tab [Tylenol Tab] Med 05/15/25 13:17 Discontinued 650 mg PO X1 ONE LORazepam [Ativan] Med 05/15/25 13:17 Discontinued 1 mg PO X1 ONE Meclizine HCl [Antivert] Med 05/15/25 13:17 Discontinued 50 mg PO X1 ONE Ondansetron Odt [Zofran Odt] Med 05/15/25 13:17 Discontinued 8 mg PO X1 ONE Vital Signs Vital signs: Vital Signs Temperature 98.7 F 05/15/25 13:06 Pulse Rate 64 05/15/25 13:06 Respiratory Rate 18 05/15/25 13:06 Blood Pressure 122/74 05/15/25 13:06 Pulse Oximetry (%) 98 05/15/25 13:06 Oxygen Delivery Method Room Air 05/15/25 13:06 Oxygen saturation 98% in room air Dizziness MDM Narrative MDM Narrative:: This is a case of 35-year-old female with history of hypertension came in in the emergency room due to dizziness on and off for 2 weeks associated with mild frontal headache patient denies any numbness weakness tingling sensation denies any blurring of vision denies any chest pain shortness of breath or palpitation patient was here twice and was diagnosed to have anxiety with the persistence of the symptoms thus patient decided to sought consult here in the emergency room physical examination patient is awake alert oriented not in distress nontoxic looking vital signs stable BP stable not tachycardic heart rate of 64 not tachypneic afebrile and oxygen saturation is 98% in room air HEENT exam showed tympanic membrane red bulging but not perforated tympanic ear canal is red otherwise normal heart normal rate regular rhythm no murmur no pitting edema clear breath sounds equal no crackles no rales noted no retraction no wheezing noted neurological exam is normal awake alert oriented x 4 no focal deficit GCS 15/15 steady gait CN II to XII is normal memory intact no slurring speech no facial droop motor or sensory reflex were all normal in all extremities steady gait blood test showed no leukocytosis no anemia kidney liver function is normal no electrolyte imbalance BNP troponin and TSH all were normal EKG showed sinus bradycardia with a heart rate of [address] elevation or depression CT scan of the head is also normal no brain mass brain bleed no CVA no TIA based on my physical examination and history patient dizziness is possibly due to ear infection anxiety and sinus bradycardia by EKG patient will follow-up with PCP to be referred to the specialist for any recurrence persistent worsening symptoms or any emergent concern return precaution in the emergency room or call 911 patient was given Ativan for anxiety meclizine and Zofran for dizziness and Tylenol for headache which improved pain resolved the sx Patient was discharged with comfortable condition walking with stable gait. Patient verbalized no further complains explained diagnosis and answered patient question. Patient is comfortable with the proposed management plan including the need to follow up with his/her primary care physician and any specialist if applicable Discussed patient for any urgent condition or worsening sx, He/She needed to go to emergency room immediately or call 911. Patient acknowledge the responsibility to follow up as instructed and to monitor her/his symptoms. For any persistence of the symptoms for more than 3-5 days return precaution advised. Discussed the result of the test and was given printed discharge instruction Patient data External records reviewed:: [facility] previous records Clinical information provided by:: patient Social determinants that could affect healthcare access:: none Patient has the following chronic illnesses:: None How is presenting disease/condition affected by chronic disease/condition?: no chronic disease Evaluation data The following diagnostics were reviewed and interpreted by me:: lab results, radiology exam(s) and EKG tracing(s) Lab and/or radiology exams considered but not ordered:: Reviewed Interpretation Summary: Review Medications / Prescriptions Medications or Prescriptions considered but not ordered:: Given the Medication administrations:: Medication Administration History Discontinued Medications Acetaminophen (Acetaminophen 325 Mg Tablet) 650 mg PO X1 ONE Stop: 05/15/25 13:18 Last Admin: 05/15/25 13:28 Dose: 650 mg Documented By: PRASANTH Lorazepam (Lorazepam 0.5 Mg Tablet) 1 mg PO X1 ONE Stop: 05/15/25 13:18 Last Admin: 05/15/25 13:28 Dose: 1 mg Documented By: OA Meclizine HCl (Meclizine Hcl 25 Mg Tablet) 50 mg PO X1 ONE Stop: 05/15/25 13:18 Last Admin: 05/15/25 13:28 Dose: 50 mg Documented By: PRASANTH Ondansetron HCl (Ondansetron Odt 4 Mg Tabrap) 8 mg PO X1 ONE; Protocol Stop: 05/15/25 13:18 Last Admin: 05/15/25 13:28 Dose: 8 mg Documented By: PRASANTH Given Consultations Consultation(s) initiated? (list below): No Diagnosis Dizziness Differential Diagnosis: benign paroxysmal positional vertigo, orthostatic hypotension and other (Otitis media sinus bradycardia anxiety) Most likely diagnosis given after review of the tests above:: Otitis media sinus bradycardia anxiety Admission Indicated Admission indicated?: not indicated Explain why admission is indicated or not indicated:: Not indicated Admission Request Was there a request for admission?: No Admission Attestation Admission request attestation: Not indicated Disposition Plan Disposition Plan: Discharge Discharge Attestation Discharge Attestation: The patient and all family members were given an opportunity to ask questions and understood the discharge instructions. Discharge instructions specifically effects, indications for sooner follow up or return to the emergency department, and the expected course of current diagnosis. Patient condition: Stable Discharge Plan Plan Patient Disposition: HOME (Self Care) Patient condition on transfer: Stable Prescriptions/Referrals Prescriptions/Med Rec: New amoxicillin-pot clavulanate 875-125 mg tablet 1 tab PO BID Qty: 20 0RF meclizine 50 mg tablet 50 mg PO BID PRN (Reason: dizziness) Qty: 20 0RF ondansetron 4 mg tablet,disintegrating 4 mg PO Q8H Qty: 20 0RF No Action ibuprofen 600 mg tablet 600 mg PO TID PRN (Reason: fever or pain) Qty: 20 0RF Rx Instructions: take with food ibuprofen 800 mg tablet 800 mg PO TID PRN (Reason: pain) Qty: 30 0RF ibuprofen 800 mg tablet 800 mg PO TID PRN (Reason: pain) Qty: 30 0RF hydrocodone-acetaminophen 5-325 mg tablet 1 tab PO BID MDD 10 PRN (Reason: pain) Qty: 6 0RF ibuprofen 800 mg tablet 800 mg PO Q8H Qty: 30 0RF atenolol 25 mg tablet 25 mg PO QDAY 30 Days Qty: 30 0RF alprazolam [Xanax] 0.5 mg tablet 0.5 mg PO BID PRN (Reason: anxiety) Qty: 20 0RF Referrals: No Primary/Family,Physician [Primary Care Provider] - In 1 week Problem List Clinical Impression: Dizziness, Sinus bradycardia, Otitis media, Anxiety Patient/Caregiver Discharge Instructions Education Materials: ED Anxiety Reaction, ED Bradycardia, ED Dizziness, Uncertain Cause, ED Otitis Media Antibiotic ... Additional Instructions: Follow-up with your primary care physician in 2 days for reevaluation and to be referred to help desk representative for further evaluation and treatment of sinus bradycardia for possible echocardiogram Holter monitor and nuclear test also need to see a psychiatrist psychologist for your anxiety and neurologist for your dizziness recurrence persistent worsening symptoms or any emergent concern call 911 or go to the nearest emergency room take your medication as directed finish the course of antibiotic for your ear infection no Q-tips no cotton balls prevent water to enter both ears is advised Print Language: Pashto Stand Alone Forms: Tawanna Award Info., Patient Portal Info Letter PA/BRAND MGR Supervising Physician PA/BRAND MGR Supervising Physician: Dr. almodovar
== END 2025-05-15 16:14 | disposition home or self-care (01) ==
PROVIDERS: Nurse Practitioner Family; Emergency Provider Family Medicine
DX: H66.90 Otitis media, unspecified, unspecified ear (principal); R42 Dizziness and giddiness; R00.1 Bradycardia, unspecified; F41.9 Anxiety disorder, unspecified; I10 Essential (primary) hypertension
CPT/HCPCS: 36415; 70450; 80053; 81001; 81025; 84443; 84484; 85025; 93005; 99283; Q0162; A9270